=== PATIENT | female | born 1965 | race African-American/Black ===

== ENCOUNTER 2017-09-09 00:14 | Emergency (ER) | payer MEDICAID ==
[~2017-09-09] VITALS: Ht 170.2 cm; Wt 75.0 kg
[~2017-09-09 00:14] MED LIST: DIPH50TA PO; FERR-63 PO; KEPP500 PO; PRO AIR; QVAR
[2017-09-09] MEDS ORDERED: MORPHINE SULFATE 4 MG/ML CPJ (NOT FOR IM USE) IV STA (01:51)
[2017-09-09] MEDS ORDERED: ONDANSETRON HCL 4MG/2ML VIAL IV STA (01:51)
[2017-09-09 02:28] LABS: CARBON DIOXIDE 27 mEq/L (21-32); CHLORIDE 112 mEq/L (98-107); TROPONIN I < 0.02 ng/mL (0.00-0.04)
[2017-09-09 02:35] LABS: BASOPHILS % 0.8 % (0.0-2.0); EOSINOPHILS % 3.5 % (0.0-5.0); HEMATOCRIT. 41.1 % (36.0-48.0); HEMOGLOBIN. 14.2 g/dL (12.0-16.0); LYMPHOCYTES % 27.9 % (20.0-50.0); MEAN CORPUSCULAR HEMOGLOBIN 33.4 pg (28.0-32.0); MEAN CORPUSCULAR VOLUME 96.7 fL (81.0-99.0); MEAN PLATELET VOLUME 8.5 fl (7.4-10.4); MONOCYTES % 5.1 % (2.0-8.0); NEUTROPHILS % 62.7 % (40.0-76.0); PLATELET 183 x1000/uL (130-400); RED BLOOD CELL COUNT 4.25 mill/uL (4.2-5.4); RED CELL DISTRIBUTION WIDTH 14.1 % (11.6-14.6)
[2017-09-09 05:18] VITALS: BP 110/77
== END 2017-09-09 05:20 | disposition home or self-care (01) ==
LOC: ER 00:14
DX: S09.8XXA Other specified injuries of head, initial encounter (principal); R56.9 Unspecified convulsions; I10 Essential (primary) hypertension; D64.9 Anemia, unspecified; J45.909 Unspecified asthma, uncomplicated; V19.3XXA Pedal cyclist (driver) (passenger) injured in unspecified nontraffic accident, initial encounter; Y93.55 Activity, bike riding; Y99.8 Other external cause status; Y92.89 Other specified places as the place of occurrence of the external cause; Z90.710 Acquired absence of both cervix and uterus
CPT/HCPCS: 36415; 71010; 80053; 84484; 85025; 93005; 96374; 96375; 99285; J2270; J2405; Z7610

== ENCOUNTER 2020-04-17 20:46 | Emergency (ER) | payer SELFPAY ==
[~2020-04-17] VITALS: Ht 185.4 cm; Wt 110.0 kg
[2020-04-17] MEDS ORDERED: KETOROLAC 60MG/2ML VIAL IM ONE (21:45)
[2020-04-17 22:05] LABS: CLARITY URINE CLOUDY (CLEAR); COLOR URINE YELLOW (YELLOW); KETONES URINE NEGATIVE (NEGATIVE); LEUKOCYTE ESTERASE URINE 3+ (NEGATIVE); NITRITE URINE NEGATIVE (NEGATIVE); OCCULT BLOOD URINE 3+ (NEGATIVE); PH URINE 7.5 (4.5-8.0); PROTEIN URINE TRACE (NEGATIVE); SPECIFIC GRAVITY URINE 1.006 (1.005-1.030)
[2020-04-17] MEDS ORDERED: CEFTRIAXONE SODIUM 1 G/VIAL IM ONE (22:30)
[2020-04-17] MEDS ORDERED: LIDOCAINE HCL 1% 20ML VIAL (Pyxis) INJ INFIL ONE (22:45)
[2020-04-17 22:55] VITALS: BP 148/79
== END 2020-04-17 23:03 | disposition home or self-care (01) ==
LOC: ER 20:46
DX: N12 Tubulo-interstitial nephritis, not specified as acute or chronic (principal); J45.909 Unspecified asthma, uncomplicated; I10 Essential (primary) hypertension; R31.9 Hematuria, unspecified; Z88.0 Allergy status to penicillin; Z79.899 Other long term (current) drug therapy; Z90.710 Acquired absence of both cervix and uterus; Z86.73 Personal history of transient ischemic attack (TIA), and cerebral infarction without residual deficits
CPT/HCPCS: 81003; 81025; 87077; 87086; 87186; 96372; 99284; J0696; J1885; J3490

== ENCOUNTER 2022-01-30 13:48 | Emergency (ER) | payer MEDICAID, OTHER ==
[~2022-01-30] VITALS: Ht 185.4 cm; Wt 99.0 kg
[2022-01-30 16:41] LABS: HEMATOCRIT. 42.6 % (36.0-48.0); HEMOGLOBIN. 14.3 g/dL (12.0-16.0); MEAN CORPUSCULAR VOLUME 92.3 fL (81.0-99.0); MEAN PLATELET VOLUME 8.5 fl (7.4-10.4); PLATELET 274 x1000/uL (130-400); RED BLOOD CELL COUNT 4.61 mill/uL (4.2-5.4)
[2022-01-30 16:44] LABS: CHLORIDE 117 mEq/L (98-107)
[2022-01-30 17:26] LABS: PLATELET ESTIMATE NORMAL
[2022-01-30] MEDS ORDERED: KETOROLAC 60MG/2ML VIAL IM ONE (17:30)
[2022-01-30] MEDS ORDERED: IBUP-2029 MT (18:16)
[2022-01-30] MEDS ORDERED: HYDR-4001 MT (18:16)
[2022-01-30 19:22] VITALS: BP 175/88
== END 2022-01-30 19:30 | disposition home or self-care (01) ==
LOC: ER 13:48
DX: R07.89 Other chest pain (principal); I10 Essential (primary) hypertension; F17.210 Nicotine dependence, cigarettes, uncomplicated; J45.909 Unspecified asthma, uncomplicated; I11.9 Hypertensive heart disease without heart failure; D64.9 Anemia, unspecified; R56.9 Unspecified convulsions; Z88.0 Allergy status to penicillin; Z90.710 Acquired absence of both cervix and uterus; Z98.890 Other specified postprocedural states
CPT/HCPCS: 36415; 71101; 80053; 83880; 84484; 85025; 93005; 96372; 99285; J1885

== ENCOUNTER 2022-02-22 12:27 | Emergency (ER) | payer OTHER ==
[~2022-02-22] VITALS: Ht 185.4 cm; Wt 99.0 kg
[~2022-02-22 12:27] MED LIST changes: +HYDR-4001 MT; +IBUP-2029 MT
[2022-02-22 13:15] LABS: BASOPHILS % 0.8 % (0.0-2.0); EOSINOPHILS % 1.8 % (0.0-5.0); HEMATOCRIT. 43.6 % (36.0-48.0); HEMOGLOBIN. 14.7 g/dL (12.0-16.0); LYMPHOCYTES % 55.5 % (20.0-50.0); MEAN CORPUSCULAR HEMOGLOBIN 31.2 pg (28.0-32.0); MEAN CORPUSCULAR VOLUME 92.5 fL (81.0-99.0); MEAN PLATELET VOLUME 8.7 fl (7.4-10.4); MONOCYTES % 4.5 % (2.0-8.0); NEUTROPHILS % 37.4 % (40.0-76.0); PLATELET 259 x1000/uL (130-400); RED BLOOD CELL COUNT 4.72 mill/uL (4.2-5.4); RED CELL DISTRIBUTION WIDTH 15.1 % (11.6-14.6)
[2022-02-22] MEDS ORDERED: MORPHINE SULFATE 4 MG/ML CPJ (NOT FOR IM USE) IV ONE (13:15)
[2022-02-22] MEDS ORDERED: HYDRALAZINE 20MG/ML VIAL IV ONE (13:15)
[2022-02-22] MEDS ORDERED: ACETAMINOPHEN 325MG TABLET PO ONE (13:15)
[2022-02-22 13:38] LABS: CHLORIDE 113 mEq/L (98-107)
[2022-02-22] MEDS ORDERED: CLONIDINE 0.2MG TABLET PO NR (14:45)
[2022-02-22] MEDS ORDERED: PROCHLORPERAZINE 10MG/2ML VIAL IV PRN (16:30)
[2022-02-22] MEDS ORDERED: KETOROLAC 15MG/ML VIAL IV ONE (16:30)
[2022-02-22] MEDS ORDERED: TOPUD MT (18:43)
[2022-02-22 20:50] VITALS: BP 125/50
[2022-02-22] MEDS ORDERED: ACETAMINOPHEN 500MG TABLET PO NR (21:00)
== END 2022-02-22 21:13 | disposition home or self-care (01) ==
LOC: ER 12:27
DX: R51.9 Headache, unspecified (principal); I10 Essential (primary) hypertension; D64.9 Anemia, unspecified; J45.909 Unspecified asthma, uncomplicated; I11.9 Hypertensive heart disease without heart failure; R56.9 Unspecified convulsions; J44.9 Chronic obstructive pulmonary disease, unspecified; Z88.0 Allergy status to penicillin; Z90.710 Acquired absence of both cervix and uterus
CPT/HCPCS: 36415; 80053; 83880; 84484; 85025; 96374; 96375; 99285; J0360; J1885; J2270

== ENCOUNTER 2023-05-05 16:11 | Emergency (ER) | payer MEDICAID, OTHER ==
[~2023-05-05] VITALS: Ht 185.4 cm; Wt 106.0 kg
[~2023-05-05 16:11] MED LIST changes: +TOPUD MT
[2023-05-05 16:41] VITALS: BP 154/66; O2SAT 97
[2023-05-05 19:34] LABS: CLARITY URINE CLEAR (CLEAR); COLOR URINE YELLOW (YELLOW); KETONES URINE NEGATIVE (NEGATIVE); LEUKOCYTE ESTERASE URINE NEGATIVE (NEGATIVE); NITRITE URINE NEGATIVE (NEGATIVE); OCCULT BLOOD URINE NEGATIVE (NEGATIVE); PH URINE 5.5 (4.5-8.0); PROTEIN URINE NEGATIVE (NEGATIVE); SPECIFIC GRAVITY URINE 1.024 (1.005-1.030)
[2023-05-05] MEDS ORDERED: LIDO700A15 TP (19:53)
[2023-05-05] MEDS ORDERED: CYCL5TAB MT (19:53)
[2023-05-05] MEDS ORDERED: KETOROLAC 30MG/ML VIAL IM ONE (20:00)
[2023-05-05 20:14] VITALS: PULSE 53; RESP 16; TEMP 98.7
== END 2023-05-05 20:14 | disposition home or self-care (01) ==
LOC: ER 16:11
DX: R10.9 Unspecified abdominal pain (principal); I10 Essential (primary) hypertension; J45.909 Unspecified asthma, uncomplicated; Z88.0 Allergy status to penicillin; Z86.59 Personal history of other mental and behavioral disorders
CPT/HCPCS: 81003; 81025; 99283; J1885; Z7610